=== PATIENT | male | born 1995 | race Caucasian/White ===

== ENCOUNTER 2018-04-22 17:56 | Emergency (ER) | payer OTHER ==
[~2018-04-22] VITALS: Ht 185.4 cm; Wt 72.5 kg
[2018-04-22 19:23] LABS: ALBUMIN 5.3 g/dL (3.5-5.0); BUN/CREATININE RATIO 8.3 (6.0-26.0); CALCIUM 9.5 mg/dL (8.4-10.2); TOTAL BILIRUBIN 1.9 mg/dL (0.2-1.3); TOTAL PROTEIN 9.1 g/dL (6.3-8.2)
[2018-04-22 19:32] LABS: HEMATOCRIT 43.9 % (42.0-52.0); MEAN CELL VOLUME 95 fl (78-100); MEAN CORPUSCULAR HEMOGLOBIN 32 pg (27-31); MEAN CORPUSCULAR HGB CONC 34 g/dL (33-37); MEAN PLATELET VOLUME 9.1 fl (7.4-10.4); PLATELET COUNT 255 K/mm3 (130-400); RED BLOOD COUNT 4.64 M/mm3 (4.20-5.60); RED CELL DISTRIBUTION WIDTH 13.3 % (11.5-14.5); WHITE BLOOD COUNT 9.7 K/mm3 (4.8-10.8)
[2018-04-22 19:50] LABS: D-DIMER 0.37 mg/L FEU (0.15-0.50)
[2018-04-22 19:57] LABS: POTASSIUM 2.6 mmol/L (3.6-5.0)
[2018-04-22 20:42] LABS: LYMPHOCYTE 24 % (20-51); MONOCYTE 9 % (3-10); NEUTROPHILS 67 % (42-75)
[2018-04-22 21:02] LABS: PH-URINE 8.5 (5.0 - 8.0); URINE APPEARANCE CLOUDY; URINE BILIRUBIN NEGATIVE (NEGATIVE); URINE BLOOD NEGATIVE (NEGATIVE); URINE COLOR YELLOW; URINE GLUCOSE NEGATIVE (NEGATIVE); URINE KETONE 2+ (NEGATIVE); URINE LEUKOCYTE ESTERASE TRACE (NEGATIVE); URINE NITRATE NEGATIVE (NEGATIVE); URINE PROTEIN(semi-quant) 2+ mg/dL (NEGATIVE); URINE UROBILINOGEN NORMAL (NORMAL)
[2018-04-22 21:03] LABS: URINE MUCUS PRESENT (NOT PRESENT)
[2018-04-22] MEDS ORDERED: ZOFRAN ODT4 MG PO (23:10)
[2018-04-23 00:28] LABS: BUN/CREATININE RATIO 7.6 (6.0-26.0); CALCIUM 8.1 mg/dL (8.4-10.2); POTASSIUM 4.1 mmol/L (3.6-5.0)
[2018-04-23 00:58] VITALS: BP 144/100
== END 2018-04-23 00:58 | disposition home or self-care (01) ==
LOC: ED 17:56
PROVIDERS: Nurse Practitioner Family
DX: T67.3XXA Heat exhaustion, anhydrotic, initial encounter (principal); E87.6 Hypokalemia; E86.0 Dehydration; R07.89 Other chest pain; F15.10 Other stimulant abuse, uncomplicated; F12.10 Cannabis abuse, uncomplicated; F17.210 Nicotine dependence, cigarettes, uncomplicated
CPT/HCPCS: J2405; J3480; J7030

== ENCOUNTER → 2018-04-24 | Outpatient (CLI) | payer OTHER ==
[2018-04-23 00:58] VITALS: BP 144/100
[~2018-04-24] MED LIST: ZOFRAN ODT4 MG PO
[2018-04-24 12:49] LABS: CALCIUM 9.1 mg/dL (8.4-10.2)
== END ==
LOC: LAB 12:13
PROVIDERS: Nurse Practitioner Family
DX: E87.6 Hypokalemia (principal)